=== PATIENT | male | born 1985 | race African-American/Black ===

== ENCOUNTER 2017-08-07 09:23 | Emergency (ER) | payer SELFPAY | END 2017-08-07 10:06 | disposition home or self-care (01) | LOC: D.ER 09:23 | DX: R05 Cough (principal); J06.9 Acute upper respiratory infection, unspecified ==

== ENCOUNTER 2017-08-25 09:25 | Emergency (ER) | payer SELFPAY | END 2017-08-25 11:51 | disposition home or self-care (01) | LOC: D.ER 09:25 | DX: L02.415 Cutaneous abscess of right lower limb (principal) ==

== ENCOUNTER 2019-01-09 08:12 | Emergency (ER) | payer SELFPAY ==
[~2019-01-09] VITALS: Ht 190.5 cm; Wt 102.3 kg
[2019-01-09 08:36] VITALS: Ht 190.5 cm; Wt 102.3 kg
[2019-01-09] MEDS ORDERED: ZOFRAN ODT4 MG/UDTAB PO (10:04)
[2019-01-09 10:29] VITALS: BP 105/68
== END 2019-01-09 10:30 | disposition home or self-care (01) ==
LOC: D.ER 08:12
DX: B34.9 Viral infection, unspecified (principal)

== ENCOUNTER 2019-02-06 15:39 | Emergency (ER) | payer SELFPAY ==
[~2019-02-06] VITALS: Ht 190.5 cm; Wt 106.8 kg
[~2019-02-06 15:39] MED LIST: ZOFRAN ODT4 MG/UDTAB PO
[2019-02-06 15:42] VITALS: Ht 190.5 cm; Wt 106.8 kg
[2019-02-06 16:25] LABS: BASOPHILS 0.1 % (0-2); EOSINOPHILS 1.1 % (0-7); HEMATOCRIT 40.8 % (42.0-54.0); HEMOGLOBIN 14.1 g/dL (13.5-17.5); IMMATURE GRANULOCYTES 0.3 % (0-5); LYMPHOCYTES 25.3 % (15-50); MCHC 34.6 g/dL (31.0-37.0); MCV 92.5 fL (80.0-100.0); MEAN PLATELET VOLUME 9.5 fL (7.4-10.4); MONOCYTES 5.4 % (2-11); NEUTROPHILS 67.8 % (40-80); PLATELET COUNT 130 10x3/uL (130-400); RBC 4.41 10x6/uL (4.20-6.10); RDW 12.6 % (11.5-14.5); WBC 7.4 10x3/uL (4.8-10.8)
[2019-02-06 16:50] LABS: ALBUMIN 3.8 g/dL (3.4-5.0); ALKALINE PHOSPHATASE 53 U/L (46-116); ALT (SGPT) 32 U/L (10-68); AMYLASE - SERUM 76 U/L (25-115); BILIRUBIN - TOTAL 0.45 mg/dL (0.2-1.3); CALC OSMOLALITY 275 mosm/kg (275-300); CALCIUM 8.8 mg/dL (8.5-10.1); CARBON DIOXIDE 23.2 mmol/L (21.0-32.0); CHLORIDE - SERUM 105 mmol/L (98-107); CREATININE - SERUM 1.2 mg/dL (0.6-1.3); GLUCOSE 77 mg/dL (74-106); LIPASE 116 U/L (73-393); POTASSIUM - SERUM 4.7 mmol/L (3.5-5.1); PROTEIN - SERUM 7.2 g/dL (6.4-8.2); SODIUM 139 mmol/L (136-145); UREA NITROGEN 11 mg/dL (7-18); eGFR NON AFRICAN AMERICAN 75 mL/min (90-120)
[2019-02-06 17:14] LABS: TROPONIN-I < 0.017 ng/mL (0.000-0.060)
[2019-02-06] MEDS ORDERED: CHRONULAC30 ML PO (17:28)
[2019-02-06 17:33] LABS: APPEARANCE CLEAR (CLEAR); COLOR YELLOW (YELLOW); NITRITE NEGATIVE (NEGATIVE); PROTEIN NEGATIVE (NEGATIVE); SPECIFIC GRAVITY 1.015 (1.005-1.020)
[2019-02-06 17:34] LABS: BILIRUBIN NEGATIVE (NEGATIVE); GLUCOSE NEGATIVE (NEGATIVE); KETONE SMALL mg/dL (NEGATIVE); UROBILINOGEN NORMAL (NORMAL)
[2019-02-06 17:58] VITALS: BP 130/88
== END 2019-02-06 17:59 | disposition home or self-care (01) ==
LOC: D.ER 15:39
PROVIDERS: Emergency Medicine
DX: R10.84 Generalized abdominal pain (principal)

== ENCOUNTER 2019-05-12 13:38 | Emergency (ER) | payer OTHER ==
[~2019-05-12] VITALS: Ht 193 cm; Wt 113.6 kg
[~2019-05-12 13:38] MED LIST changes: +CHRONULAC30 ML PO
[2019-05-12 13:45] VITALS: Ht 193 cm; Wt 113.6 kg
[2019-05-12 14:39] LABS: BASOPHILS 0.2 % (0-2); EOSINOPHILS 1.3 % (0-7); HEMATOCRIT 40.1 % (42.0-54.0); IMMATURE GRANULOCYTES 0.2 % (0-5); LYMPHOCYTES 30.3 % (15-50); MCH 31.8 pg (26.0-34.0); MCHC 34.9 g/dL (31.0-37.0); MCV 91.1 fL (80.0-100.0); MEAN PLATELET VOLUME 8.7 fL (7.4-10.4); MONOCYTES 6.5 % (2-11); NEUTROPHILS 61.5 % (40-80); RDW 12.7 % (11.5-14.5)
[2019-05-12 14:42] LABS: ALBUMIN 3.6 g/dL (3.4-5.0); ANION GAP 12.3 mmol/L (8-16); BILIRUBIN - TOTAL 0.57 mg/dL (0.2-1.3); CALCIUM 8.8 mg/dL (8.5-10.1); CARBON DIOXIDE 26.8 mmol/L (21.0-32.0); CREATININE - SERUM 1.5 mg/dL (0.6-1.3); POTASSIUM - SERUM 4.1 mmol/L (3.5-5.1)
[2019-05-12 14:46] LABS: PLATELET COUNT 268 10x3/uL (130-400)
[2019-05-12 20:40] VITALS: BP 106/69
== END 2019-05-12 20:40 | disposition home or self-care (01) ==
LOC: D.ER 13:38
PROVIDERS: Family Medicine
DX: K57.92 Diverticulitis of intestine, part unspecified, without perforation or abscess without bleeding (principal); K59.00 Constipation, unspecified